=== PATIENT | female | born 1970 | race Caucasian/White ===

== ENCOUNTER 2022-10-26 21:22 | Emergency (ER) | payer BC ==
[~2022-10-26] VITALS: Ht 157.5 cm; Wt 136.1 kg
[2022-10-26 21:26] VITALS: BP_SYST 167
--- NOTE | 2022-10-26 21:35 | NUR ---
ER examining patient in the triage room.
[2022-10-26] MEDS ORDERED: ACETAMINOPHEN 500 MG TABLET PO ONE (22:00)
[2022-10-26] MEDS ORDERED: MECLIZINE HCL 25 MG TABLET (ANITVERT) PO ONE (22:00)
--- NOTE | 2022-10-26 22:00 | NUR ---
Placed in room 6 . Placed on nightclub manager, blood pressure machine and pulse oximeter. To gown for exam. Side rails up. Report given to MARGARETH GUILLEN(REG).
[2022-10-26 22:28] LABS: BASOPHILS # (AUTO) 0.1 K/uL (0.0-0.2); EOSINOPHILS # (AUTO) 0.3 K/uL (0.0-0.4); EOSINOPHILS % (AUTO) 3.4 % (0.0-4.0); HEMATOCRIT 36.5 % (36-48); HEMOGLOBIN 12.4 g/dL (12.0-16.0); LYMPHOCYTES # (AUTO) 2.4 K/uL (1.0-5.5); LYMPHOCYTES % (AUTO) 26.1 % (20.5-51.5); MEAN CORPUSCULAR HEMOGLOBIN 29 pg (27-31); MEAN CORPUSCULAR HGB CONC 34 % (32-36); MEAN CORPUSCULAR VOLUME 86 fL (79.0-98.0); MONOCYTES # (AUTO) 0.5 K/uL (0.0-1.0); MONOCYTES % (AUTO) 5.6 % (1.7-9.3); NEUTROPHILS # (AUTO) 5.9 K/uL (1.8-7.7); NEUTROPHILS % (AUTO) 63.9 % (40.0-70.0); PLATELET COUNT (AUTO) 342 K/uL (130-430); RED BLOOD CELL COUNT(AUTO) 4.22 MIL/uL (4.2-6.2); WHITE BLOOD COUNT (AUTO) 9.2 K/uL (4.8-10.8)
[2022-10-26 22:30] LABS: ALANINE AMINOTRANSFERASE 37 U/L (12-78); ALBUMIN 3.6 g/dL (3.4-4.8); ANION GAP 7 (5-15); ASPARTATE AMINOTRANSFERASE 18 U/L (10-37); CALCIUM 9.3 mg/dL (8.4-11.0); CHLORIDE 99 mmol/L (98-107); GFR AFRICAN AMERICAN 55 mL/min (>90); GLUCOSE 109 mg/dL (70-99); TOTAL BILIRUBIN 1.2 mg/dL (0.0-1.0); UREA NITROGEN, BLOOD 21 mg/dL (8-21)
[2022-10-26] MEDS ORDERED: MECL-109 PO (23:38)
[2022-10-27 00:22] VITALS: BP_SYST 135
== END 2022-10-27 02:29 | disposition home or self-care (01) ==
LOC: SED 21:22
DX: R42 Dizziness and giddiness (principal); R51.9 Headache, unspecified; R20.2 Paresthesia of skin; I10 Essential (primary) hypertension; Z79.899 Other long term (current) drug therapy
CPT/HCPCS: 99285; 71045; 80053; 85025; 84484; 36415; 93005; J8597

== ENCOUNTER 2023-01-12 08:35 | Emergency (ER) | payer BC ==
[~2023-01-12] VITALS: Ht 157.5 cm; Wt 149.7 kg
[2023-01-12 08:35] VITALS: BP_SYST 165
[~2023-01-12 08:35] MED LIST: MECL-109 PO
--- NOTE | 2023-01-12 08:35 | NUR ---
BROUGHT BACK TO BED #4 AND TRIAGED. REPORT GIVEN TO HENRIK
--- NOTE | 2023-01-12 08:45 | NUR ---
PT BIB SELF C/O OF A BURNING AND PAIN IN THE VAGINAL AREA. PT STATES THAT SHE HAS HAD A UTI FOR THE PAST FEW WEEKS AND HAS BEEN ON ANTIBIOTIC FOR A FEW WEEKS. PT STATES THAT HER PHP TOLD HER SHE SHOULD COME IN TO THE ER. PT HAS A WHITE DISCHARGE NO FOUL ODOR NOTED. PT IS [employer] 15 EYES OPEN SPONTANEOUSLY, ORIENTED TO PERSON, PLACE, TIME, AND SITUATION. PT OBEYS COMMANDS.PT DENIES VISUAL OR AUDITORY PROBLEMS. PT DENIES FEVER, SOB, CHEST PAIN, AND ABDOMINAL PAIN. PT DOES FEEL "SLIGHTLY NAUSEA". PT PAIN IS 8 OUT OF 10 PAIN AT THIS MOMENT. PT ON THE MONITOR IN ROOM 4.
--- NOTE | 2023-01-12 08:50 | NUR ---
ER at bedside examining patient.
--- NOTE | 2023-01-12 09:07 | NUR ---
DR. QUINTANA PREORMED PELVIC EXAM AT BEDSIDE WITH RN AT BEDSIDE. PT TOLERATED WELL.
--- NOTE | 2023-01-12 09:12 | NUR ---
UA SENT TO LAB.
[2023-01-12 09:16] LABS: BILIRUBIN,URINE NEGATIVE (NEGATIVE); BLOOD, URINE NEGATIVE (NEGATIVE); CLARITY/URINE CLEAR (CLEAR); COLOR,URINE YELLOW (YELLOW); GLUCOSE,URINE NEGATIVE (NEGATIVE); KETONES,URINE NEGATIVE (NEGATIVE); LEUKOCYTE ESTERASE ,URINE NEGATIVE (NEGATIVE); NITRITE, URINE NEGATIVE (NEGATIVE); PROTEIN URINE NEGATIVE (NEGATIVE); UROBILINOGEN,URINE 0.2 (0.2-1.0)
[2023-01-12] MEDS ORDERED: PHEN-726 PO (11:06)
[2023-01-12 11:18] VITALS: BP_SYST 141
--- NOTE | 2023-01-12 11:21 | NUR ---
Patient given written and verbal discharge instructions and verbalizes understanding. ER MD discussed with patient the results and treatment provided. Patient in stable condition. ID arm band removed. Rx of phenazopyridine given. Patient educated on pain management and to follow up with PMD. Pain Scale 3 out of 10. Opportunity for questions provided and answered. Medication side effect fact sheet provided.
== END 2023-01-12 11:21 | disposition home or self-care (01) ==
LOC: SED 08:35
DX: N76.0 Acute vaginitis (principal); R10.9 Unspecified abdominal pain; M54.50 Low back pain, unspecified; R31.9 Hematuria, unspecified; I10 Essential (primary) hypertension; Z79.899 Other long term (current) drug therapy
CPT/HCPCS: 81003; 87086; 87210-TC; 99284